=== PATIENT | female | born 1980 | race Caucasian/White ===

== ENCOUNTER 2023-01-01 15:21 | Inpatient (IN) | payer BC ==
[2023-01-01] MEDS ORDERED: HYDROmorphone 0.5 MG/0.5 ML Syringe IVPUSH ONE (15:39)
[2023-01-01] MEDS ORDERED: Lactated Ringers 1,000 ML IV ONE (15:46)
[2023-01-01] MEDS ORDERED: Ketamine 17 MG in Sodium Chloride 0.9% 19.83 ML IV SCH (16:00)
[2023-01-01] MEDS ORDERED: Ropivacaine 40 ML, dexAMETHasone 8 MG, EPINEPHrine 0.4 MG, Sodium Chloride 0.9% 37.6 ML NERVRT SCH ×4 (16:00)
[2023-01-01] MEDS ORDERED: Ketamine 500 MG/5 ML MDV IV SCH (16:00)
[2023-01-01] MEDS ORDERED: Ondansetron 4 MG/2 ML SDV ONE (16:08)
[2023-01-01] MEDS ORDERED: Dexamethasone 4 MG/ML SDV ONE (16:08)
[2023-01-01] MEDS ORDERED: fentaNYL 250 MCG/5 ML SDV ONE ×2 (16:08→16:40)
[2023-01-01] MEDS ORDERED: Rocuronium 50 MG/5 ML Vial ONE ×2 (16:08→16:59)
[2023-01-01] MEDS ORDERED: Neostigmine Methylsulfate 1 MG/ML 5 ML Syringe ONE (16:08)
[2023-01-01] MEDS ORDERED: Succinylcholine 200 MG/10 ML MDV ONE (16:08)
[2023-01-01] MEDS ORDERED: Glycopyrrolate 0.2 MG/ML 5 ML MDV ONE (16:08)
[2023-01-01] MEDS ORDERED: Propofol 200 MG/20 ML SDV ONE (16:08)
[2023-01-01] MEDS ORDERED: Meropenem 500 MG SDV ONE ×3 (16:14→16:42)
[2023-01-01] MEDS ORDERED: LINEZOLID ONE (16:42)
[2023-01-01] MEDS ORDERED: Labetalol 20 MG/4 ML Syringe ONE (17:00)
[2023-01-01] MEDS ORDERED: Lactated Ringers 1,000 ML ONE (17:02)
[2023-01-01] MEDS ORDERED: Linezolid 600 MG/300 ML Premix Bag IRR ONE (17:23)
[2023-01-01] MEDS ORDERED: fentaNYL 50 MCG/ML SDV IVPUSH ONE (18:24)
[2023-01-01] MEDS ORDERED: Lidocaine 1% 2 ML ONE (18:35)
[2023-01-01] MEDS ORDERED: HYDROmorphone/Normal Saline 6 MG/30 ML PCA Vial IV PRN (19:33)
[2023-01-01] MEDS ORDERED: Dextrose 5%-Lactated Ringers 1,000 ML IV SCH (19:45)
[2023-01-01] MEDS ORDERED: Metoclopramide 10 MG/2 ML SDV IVPUSH PRN (20:00)
[2023-01-01] MEDS ORDERED: Ondansetron 4 MG/2 ML SDV IVPUSH PRN (20:00)
[2023-01-01] MEDS ORDERED: Labetalol 20 MG/4 ML Syringe IVPUSH PRN (20:00)
[2023-01-01] MEDS ORDERED: Naloxone 0.4 MG/ML SDV IV PRN (20:00)
[2023-01-01] MEDS ORDERED: Acetaminophen 500 MG Tab PO PRN (20:00)
[2023-01-01] MEDS: Linezolid 600 MG in Premix Bag 1 BAG IV SCH (20:07)
[2023-01-01] MEDS: Pantoprazole 40 MG Vial IVPUSH SCH (20:07)
[2023-01-01] MEDS: Acetaminophen 500 MG Tab PO SCH ×4 (20:07→21:24)
[2023-01-01] MEDS: hydrOXYzine HCL 100 MG/2 ML SDV IM PRN (20:17)
[2023-01-01] MEDS: Cyclobenzaprine 10 MG Tab PO PRN (21:22)
[2023-01-01] MEDS: HYDROmorphone/Normal Saline 6 MG/30 ML PCA Vial IV PRN (22:12)
[2023-01-01] MEDS: Calcium Carbonate 500 MG Tab.Chew PO PRN (22:17)
[2023-01-01] MEDS: Heparin Sodium 5,000 Units/ML Vial SUBCUT SCH (22:25)
[2023-01-01] MEDS: Meropenem 500 MG in Sodium Chloride 0.9% 50 ML IV SCH (22:47)
[2023-01-02] MEDS: HYDROmorphone/Normal Saline 6 MG/30 ML PCA Vial IV PRN ×4 (01:34→23:40)
[2023-01-02] MEDS: diphenhydrAMINE 50 MG/ML SDV IVPUSH PRN ×2 (03:42→15:39)
[2023-01-02] MEDS: Acetaminophen 500 MG Tab PO SCH (03:44)
[2023-01-02] MEDS: Meropenem 500 MG in Sodium Chloride 0.9% 50 ML IV SCH ×5 (03:51→23:25)
[2023-01-02] MEDS: hydrOXYzine HCL 100 MG/2 ML SDV IM PRN ×3 (03:53→23:43)
[2023-01-02] MEDS ORDERED: Iopamidol 612 MG/ML 30 ML SDV PO ONE (04:43)
[2023-01-02 04:56] LABS: BASOPHILS PERCENT AUTO 0.1 % (0.1-1.3); HEMATOCRIT 34.6 % (34.3-46.0); HEMOGLOBIN 11.5 g/dL (11.2-15.5); IMMATURE GRAN ABSOLUTE AUTO 0.05 K/uL (0.00-0.23); IMMATURE GRAN PERCENT AUTO 0.3 % (0.0-0.7); LYMPHOCYTES ABSOLUTE AUTO 0.47 K/uL (0.8-3.3); LYMPHOCYTES PERCENT AUTO 3.3 % (11.4-47.7); MEAN CORPUSCULAR HEMOGLOBIN 27.7 pg (31.6-35.5); MEAN CORPUSCULAR HGB CONC 33.2 g/dL (31.6-35.5); MEAN CORPUSCULAR VOLUME 83.4 fL (81.4-99.0); NEUTROPHILS ABSOLUTE AUTO 12.85 K/uL (1.0-7.6); NEUTROPHILS PERCENT AUTO 89.3 % (40.0-78.1); PLATELET COUNT,PLT 353 K/uL (130-375); RED BLOOD CELL COUNT 4.15 M/uL (3.77-5.24); WHITE BLOOD CELL COUNT,WBC 14.4 K/uL (3.2-11.0)
[2023-01-02 05:01] LABS: BASOPHILS ABSOLUTE AUTO 0.01 K/uL (0.00-0.10)
[2023-01-02 05:30] LABS: A/G RATIO 0.8 (1.2-2.2); ALANINE AMINOTRANSFERASE,ALT 40 U/L (12-78); ALBUMIN 2.7 g/dL (3.4-5.0); ALKALINE PHOSPHATASE 88 U/L (46-116); ASPARTATE AMNIOTRANSFERASE,AST 36 U/L (15-37); BILIRUBIN TOTAL 0.3 mg/dL (0.2-1.0); BLOOD UREA NITROGEN,BUN 7 mg/dL (7-18); CALCIUM 8.8 mg/dL (8.5-10.1); CARBON DIOXIDE,CO2 25 mmol/L (21-32); CHLORIDE,CL 103 mmol/L (100-108); CREATININE 0.8 mg/dL (0.6-1.0); EST CRCL DRUG DOSING (CG) 83.27 mL/min; ESTIMATED GFR 95 mL/min (>60); FERRITIN 20 ng/ml (8-388); GLUCOSE RANDOM 203 mg/dL (74-106); MAGNESIUM 1.6 mg/dL (1.8-2.4); POTASSIUM,K 4.2 mmol/L (3.6-5.2); PRO B-TYPE NATRIUR PEPT,BNPPRO 255 pg/mL (5-125); PROTEIN TOTAL,TP 6.1 g/dL (6.4-8.2); SODIUM,NA 136 mmol/L (140-148)
[2023-01-02 06:27] LABS: ANION GAP 12.2 mmol/L (5.0-14.0)
[2023-01-02] MEDS: Heparin Sodium 5,000 Units/ML Vial SUBCUT SCH ×2 (09:23→20:10)
[2023-01-02] MEDS: Linezolid 600 MG in Premix Bag 1 BAG IV SCH ×2 (09:23→20:10)
[2023-01-02] MEDS: Magnesium Sulfate/Water 2 GM in Premix Bag 1 BAG IV SCH ×3 (09:38→20:36)
[2023-01-02] MEDS: Dextrose 5%-Lactated Ringers 1,000 ML IV SCH (11:31)
[2023-01-02] MEDS: Acetaminophen 1,000 MG in Premix Bag 1 BAG IV SCH ×3 (12:32→23:28)
[2023-01-02] MEDS: Cyclobenzaprine 10 MG Tab PO PRN ×2 (12:32→20:39)
[2023-01-02] MEDS: Sodium Ferric Gluconate Cmplex 250 MG in Sodium Chloride 0.9% 100 ML IV SCH (13:55)
[2023-01-02] MEDS: Calcium Carbonate 500 MG Tab.Chew PO PRN (15:39)
[2023-01-02] MEDS: Ketorolac 10 MG Tab PO PRN (15:54)
[2023-01-02] MEDS ORDERED: MVI, Adult with Vitamin K 10 ML, Thiamine 200 MG, Zinc/Copper/Manganese/Selenium 1 ML i... IV SCH ×8 (16:00)
[2023-01-02] MEDS: Pantoprazole 40 MG Vial IVPUSH SCH (20:10)
[2023-01-03] MEDS: Ketorolac 10 MG Tab PO PRN (02:34)
[2023-01-03] MEDS: Dextrose 5%-Lactated Ringers 1,000 ML IV SCH (02:42)
[2023-01-03] MEDS: Magnesium Sulfate/Water 2 GM in Premix Bag 1 BAG IV SCH ×4 (02:44→18:51)
[2023-01-03] MEDS: Cyclobenzaprine 10 MG Tab PO PRN ×2 (04:38→10:38)
[2023-01-03] MEDS: diphenhydrAMINE 50 MG/ML SDV IVPUSH PRN ×2 (04:39→21:45)
[2023-01-03] MEDS: Meropenem 500 MG in Sodium Chloride 0.9% 50 ML IV SCH ×5 (04:42→23:58)
[2023-01-03 05:05] LABS: BASOPHILS ABSOLUTE AUTO 0.04 K/uL (0.00-0.10); BASOPHILS PERCENT AUTO 0.4 % (0.1-1.3); EOSINOPHILS ABSOLUTE AUTO 0.13 K/uL (0.00-0.40); EOSINOPHILS PERCENT AUTO 1.3 % (0.0-5.4); HEMATOCRIT 30.6 % (34.3-46.0); HEMOGLOBIN 9.6 g/dL (11.2-15.5); IMMATURE GRAN ABSOLUTE AUTO 0.05 K/uL (0.00-0.23); IMMATURE GRAN PERCENT AUTO 0.5 % (0.0-0.7); LYMPHOCYTES ABSOLUTE AUTO 1.65 K/uL (0.8-3.3); LYMPHOCYTES PERCENT AUTO 16.1 % (11.4-47.7); MEAN CORPUSCULAR HEMOGLOBIN 27.2 pg (31.6-35.5); MEAN CORPUSCULAR HGB CONC 31.4 g/dL (31.6-35.5); MEAN CORPUSCULAR VOLUME 86.7 fL (81.4-99.0); MONOCYTES PERCENT AUTO 6.8 % (3.3-12.6); NEUTROPHILS ABSOLUTE AUTO 7.65 K/uL (1.0-7.6); NEUTROPHILS PERCENT AUTO 74.9 % (40.0-78.1); PLATELET COUNT,PLT 292 K/uL (130-375); RED BLOOD CELL COUNT 3.53 M/uL (3.77-5.24); WHITE BLOOD CELL COUNT,WBC 10.2 K/uL (3.2-11.0)
[2023-01-03 05:26] LABS: A/G RATIO 0.7 (1.2-2.2); ALANINE AMINOTRANSFERASE,ALT 30 U/L (12-78); ALBUMIN 2.4 g/dL (3.4-5.0); ALKALINE PHOSPHATASE 95 U/L (46-116); ASPARTATE AMNIOTRANSFERASE,AST 45 U/L (15-37); BILIRUBIN TOTAL 0.2 mg/dL (0.2-1.0); BLOOD UREA NITROGEN,BUN 6 mg/dL (7-18); CALCIUM 8.7 mg/dL (8.5-10.1); CARBON DIOXIDE,CO2 30 mmol/L (21-32); CHLORIDE,CL 104 mmol/L (100-108); CREATININE 0.8 mg/dL (0.6-1.0); EST CRCL DRUG DOSING (CG) 83.27 mL/min; ESTIMATED GFR 95 mL/min (>60); GLUCOSE RANDOM 107 mg/dL (74-106); PHOSPHORUS 3.7 mg/dL (2.5-4.9); POTASSIUM,K 3.7 mmol/L (3.6-5.2); PROTEIN TOTAL,TP 5.9 g/dL (6.4-8.2); SODIUM,NA 139 mmol/L (140-148)
[2023-01-03 05:31] LABS: ANION GAP 8.7 mmol/L (5.0-14.0)
[2023-01-03] MEDS: Acetaminophen 1,000 MG in Premix Bag 1 BAG IV SCH (05:53)
[2023-01-03] MEDS: HYDROmorphone/Normal Saline 6 MG/30 ML PCA Vial IV PRN ×2 (06:07→19:40)
[2023-01-03] MEDS ORDERED: Meropenem 500 MG SDV ONE (06:39)
[2023-01-03] MEDS ORDERED: Bupivacaine 0.5% 50 ML MDV ONE (06:39)
[2023-01-03] MEDS ORDERED: Lidocaine 1% with EPINEPHrine 1:100,000 50 ML MDV ONE (06:39)
[2023-01-03] MEDS ORDERED: Ropivacaine 40 ML, dexAMETHasone 8 MG, EPINEPHrine 0.4 MG, Sodium Chloride 0.9% 37.6 ML NERVRT SCH ×4 (07:15)
[2023-01-03] MEDS ORDERED: Midazolam 1 MG/ML 2 ML SDV ONE (07:16)
[2023-01-03] MEDS ORDERED: fentaNYL 100 MCG/2 ML SDV ONE (07:16)
[2023-01-03] MEDS ORDERED: Propofol 200 MG/20 ML SDV ONE ×2 (07:16→07:50)
[2023-01-03] MEDS ORDERED: Lactated Ringers 1,000 ML ONE (08:05)
[2023-01-03] MEDS ORDERED: Cyanocobalamin (Vitamin B12) 1,000 MCG/ML SDV IM ONE (09:00)
[2023-01-03] MEDS ORDERED: Dextrose 5%-Lactated Ringers 1,000 ML IV SCH (09:30)
[2023-01-03] MEDS: Heparin Sodium 5,000 Units/ML Vial SUBCUT SCH ×2 (10:21→21:27)
[2023-01-03] MEDS: Linezolid 600 MG in Premix Bag 1 BAG IV SCH ×2 (10:31→21:27)
[2023-01-03] MEDS ORDERED: Sodium Ferric Gluconate Cmplex 250 MG in Sodium Chloride 0.9% 100 ML IV SCH (13:30)
[2023-01-03] MEDS: Acetaminophen 500 MG Tab PO SCH ×3 (14:21→18:54)
[2023-01-03] MEDS: Sodium Ferric Gluconate Cmplex 250 MG in Sodium Chloride 0.9% 100 ML IV SCH (14:25)
[2023-01-03] MEDS: hydrOXYzine HCL 100 MG/2 ML SDV IM PRN (18:44)
[2023-01-03] MEDS: Pantoprazole 40 MG Vial IVPUSH SCH (21:27)
[2023-01-04] MEDS: Acetaminophen 500 MG Tab PO SCH ×2 (00:04→06:06)
[2023-01-04] MEDS: Magnesium Sulfate/Water 2 GM in Premix Bag 1 BAG IV SCH ×2 (00:06→05:22)
[2023-01-04 04:27] LABS: BASOPHILS PERCENT AUTO 0.1 % (0.1-1.3); EOSINOPHILS PERCENT AUTO 0.1 % (0.0-5.4); HEMATOCRIT 30.7 % (34.3-46.0); HEMOGLOBIN 9.9 g/dL (11.2-15.5); IMMATURE GRAN ABSOLUTE AUTO 0.06 K/uL (0.00-0.23); IMMATURE GRAN PERCENT AUTO 0.6 % (0.0-0.7); LYMPHOCYTES PERCENT AUTO 10.3 % (11.4-47.7); MEAN CORPUSCULAR HEMOGLOBIN 27.5 pg (31.6-35.5); MEAN CORPUSCULAR HGB CONC 32.2 g/dL (31.6-35.5); MEAN CORPUSCULAR VOLUME 85.3 fL (81.4-99.0); MONOCYTES ABSOLUTE AUTO 0.53 K/uL (0.20-0.90); NEUTROPHILS ABSOLUTE AUTO 8.96 K/uL (1.0-7.6); NEUTROPHILS PERCENT AUTO 83.9 % (40.0-78.1); PLATELET COUNT,PLT 333 K/uL (130-375); WHITE BLOOD CELL COUNT,WBC 10.7 K/uL (3.2-11.0)
[2023-01-04 04:29] LABS: BASOPHILS ABSOLUTE AUTO 0.01 K/uL (0.00-0.10); EOSINOPHILS ABSOLUTE AUTO 0.01 K/uL (0.00-0.40)
[2023-01-04] MEDS: Meropenem 500 MG in Sodium Chloride 0.9% 50 ML IV SCH (05:19)
[2023-01-04] MEDS ORDERED: HYDROmorphone 2 MG Tab PO PRN (07:42)
[2023-01-04] MEDS: Linezolid 600 MG in Premix Bag 1 BAG IV SCH (08:25)
[2023-01-04] MEDS: Heparin Sodium 5,000 Units/ML Vial SUBCUT SCH (08:30)
[2023-01-04] MEDS ORDERED: Bisacodyl 5 MG Tab PO SCH (09:00)
[2023-01-04] MEDS ORDERED: Ciprofloxacin 500 MG Tab PO SCH (09:00)
[2023-01-04] MEDS: Magnesium Hydroxide 400 MG/5 ML Susp 30 ML Cup PO SCH ×2 (09:19→09:41)
== END 2023-01-04 09:50 | disposition home or self-care (01) | DRG 220 ==
LOC: JP.MS 15:21 → JP.ICU 19:15 → JP.MS 19:17 → JP.ICU 19:17 → JP.MS 01-03 08:53
PROVIDERS: ADMIT Surgery; ATTEND Surgery
PROC: 0DT60ZZ Resection of Stomach, Open Approach (ICD-10-PCS; principal; 2023-01-01)
PROC: 3E0M05Z Introduction of Adhesion Barrier into Peritoneal Cavity, Open Approach (ICD-10-PCS; 2023-01-01)
PROC: 0D990ZZ Drainage of Duodenum, Open Approach (ICD-10-PCS; 2023-01-01)
PROC: 0D160Z9 Bypass Stomach to Duodenum, Open Approach (ICD-10-PCS; 2023-01-01)
PROC: 0WQF0ZZ Repair Abdominal Wall, Open Approach (ICD-10-PCS; 2023-01-03)
DX: K95.89 Other complications of other bariatric procedure (principal); K26.5 Chronic or unspecified duodenal ulcer with perforation; K21.9 Gastro-esophageal reflux disease without esophagitis; E66.01 Morbid (severe) obesity due to excess calories; K63.0 Abscess of intestine; F41.9 Anxiety disorder, unspecified; Z20.822 Contact with and (suspected) exposure to COVID-19; Z88.6 Allergy status to analgesic agent; Z90.49 Acquired absence of other specified parts of digestive tract; Z98.84 Bariatric surgery status; Z98.890 Other specified postprocedural states; Z87.891 Personal history of nicotine dependence; Z79.899 Other long term (current) drug therapy; Z68.29 Body mass index [BMI] 29.0-29.9, adult
CPT/HCPCS: 36415; 74240; 74240-26; 80053; 82728; 83735; 83880; 84100; 85025; 87070; 87075; 87205; A9270-GY; C9113; J0131; J0171; J0330; J1100; J1170; J1200; J1644; J2020; J2185; J2250; J2405; J2704; J2710; J2795; J2916; J3010; J3410; J3411; J3420; J3475; J3490; J7120; J7121; Q9967

== ENCOUNTER 2023-01-05 11:19 | Inpatient (IN) | payer BC ==
[2023-01-05] MEDS ORDERED: Naloxone 0.4 MG/ML SDV IVPUSH PRN ×2 (11:46→15:26)
[2023-01-05] MEDS ORDERED: HYDROmorphone 0.5 MG/0.5 ML Syringe IVPUSH ONE (11:46)
[2023-01-05] MEDS ORDERED: Sodium Chloride 0.9% 10 ML Syringe FLUSH PRN ×2 (11:46→12:19)
[2023-01-05] MEDS ORDERED: Sodium Chloride 0.9% 1,000 ML IV ONE (11:47)
[2023-01-05] MEDS ORDERED: Pantoprazole 40 MG Vial IVPUSH ONE (12:03)
[2023-01-05 12:09] LABS: BASOPHILS ABSOLUTE AUTO 0.05 K/uL (0.00-0.10); BASOPHILS PERCENT AUTO 0.5 % (0.1-1.3); EOSINOPHILS ABSOLUTE AUTO 0.23 K/uL (0.00-0.40); EOSINOPHILS PERCENT AUTO 2.4 % (0.0-5.4); HEMATOCRIT 34.4 % (34.3-46.0); HEMOGLOBIN 11.2 g/dL (11.2-15.5); IMMATURE GRAN ABSOLUTE AUTO 0.12 K/uL (0.00-0.23); IMMATURE GRAN PERCENT AUTO 1.3 % (0.0-0.7); LYMPHOCYTES PERCENT AUTO 17.7 % (11.4-47.7); MEAN CORPUSCULAR HEMOGLOBIN 27.4 pg (31.6-35.5); MEAN CORPUSCULAR HGB CONC 32.6 g/dL (31.6-35.5); MEAN CORPUSCULAR VOLUME 84.1 fL (81.4-99.0); MONOCYTES ABSOLUTE AUTO 0.83 K/uL (0.20-0.90); MONOCYTES PERCENT AUTO 8.7 % (3.3-12.6); NEUTROPHILS ABSOLUTE AUTO 6.66 K/uL (1.0-7.6); NEUTROPHILS PERCENT AUTO 69.4 % (40.0-78.1); PLATELET COUNT,PLT 404 K/uL (130-375); RED BLOOD CELL COUNT 4.09 M/uL (3.77-5.24); WHITE BLOOD CELL COUNT,WBC 9.6 K/uL (3.2-11.0)
[2023-01-05] MEDS ORDERED: Iopamidol 612 MG/ML 100 ML Bottle IV PRN (12:19)
[2023-01-05] MEDS ORDERED: Sodium Chloride 0.9% 50 ML IV ONE (12:19)
[2023-01-05 12:31] LABS: A/G RATIO 0.7 (1.2-2.2); ALANINE AMINOTRANSFERASE,ALT 29 U/L (12-78); ALBUMIN 2.8 g/dL (3.4-5.0); ALKALINE PHOSPHATASE 122 U/L (46-116); ASPARTATE AMNIOTRANSFERASE,AST 35 U/L (15-37); BILIRUBIN TOTAL 0.2 mg/dL (0.2-1.0); BLOOD UREA NITROGEN,BUN 12 mg/dL (7-18); C-REACTIVE PROTEIN 7.77 mg/dL (0.0-0.3); CALCIUM 8.8 mg/dL (8.5-10.1); CARBON DIOXIDE,CO2 26 mmol/L (21-32); CHLORIDE,CL 102 mmol/L (100-108); CREATININE 0.6 mg/dL (0.6-1.0); EST CRCL DRUG DOSING (CG) 111.03 mL/min; ESTIMATED GFR 116 mL/min (>60); GLUCOSE RANDOM 98 mg/dL (74-106); POTASSIUM,K 3.7 mmol/L (3.6-5.2); SODIUM,NA 139 mmol/L (140-148)
[2023-01-05 12:32] LABS: ANION GAP 14.7 mmol/L (5.0-14.0)
[2023-01-05] MEDS: HYDROmorphone 0.5 MG/0.5 ML Syringe IVPUSH PRN ×2 (12:38→14:23)
[2023-01-05] MEDS ORDERED: Meropenem 1 GM in Sodium Chloride 0.9% 100 ML IV SCH (14:00)
[2023-01-05] MEDS ORDERED: diphenhydrAMINE 25 MG Cap PO PRN (15:26)
[2023-01-05] MEDS ORDERED: Magnesium Hydroxide 400 MG/5 ML Susp 30 ML Cup PO PRN (15:26)
[2023-01-05] MEDS ORDERED: Acetaminophen 325 MG Tab PO PRN (15:26)
[2023-01-05] MEDS ORDERED: diphenhydrAMINE 50 MG/ML SDV IVPUSH PRN (15:26)
[2023-01-05] MEDS ORDERED: Ondansetron 4 MG/2 ML SDV IV PRN (15:26)
[2023-01-05] MEDS ORDERED: Sennosides/Docusate Sodium 50-8.6 MG Tab PO PRN (15:26)
[2023-01-05] MEDS ORDERED: Ondansetron 4 MG Tab.DIS PO PRN (15:26)
[2023-01-05] MEDS: HYDROmorphone/Normal Saline 6 MG/30 ML PCA Vial IV PRN (15:54)
[2023-01-05] MEDS: Linezolid 600 MG in Premix Bag 1 BAG IV SCH (16:02)
[2023-01-05] MEDS: Dextrose 5%-Lactated Ringers 1,000 ML IV SCH (19:37)
[2023-01-05] MEDS: Meropenem 1 GM in Sodium Chloride 0.9% 100 ML IV SCH (21:20)
[2023-01-06] MEDS: HYDROmorphone/Normal Saline 6 MG/30 ML PCA Vial IV PRN ×2 (01:19→15:39)
[2023-01-06] MEDS: Linezolid 600 MG in Premix Bag 1 BAG IV SCH ×2 (04:20→15:59)
[2023-01-06 04:48] LABS: HEMATOCRIT 33.2 % (34.3-46.0); HEMOGLOBIN 10.6 g/dL (11.2-15.5); MEAN CORPUSCULAR HEMOGLOBIN 27.4 pg (31.6-35.5); MEAN CORPUSCULAR HGB CONC 31.9 g/dL (31.6-35.5); MEAN CORPUSCULAR VOLUME 85.8 fL (81.4-99.0); RED BLOOD CELL COUNT 3.87 M/uL (3.77-5.24); WHITE BLOOD CELL COUNT,WBC 7.4 K/uL (3.2-11.0)
[2023-01-06 05:02] LABS: A/G RATIO 0.6 (1.2-2.2); ALANINE AMINOTRANSFERASE,ALT 24 U/L (12-78); ALBUMIN 2.4 g/dL (3.4-5.0); ALKALINE PHOSPHATASE 107 U/L (46-116); ASPARTATE AMNIOTRANSFERASE,AST 24 U/L (15-37); BILIRUBIN TOTAL 0.2 mg/dL (0.2-1.0); BLOOD UREA NITROGEN,BUN 8 mg/dL (7-18); CALCIUM 8.6 mg/dL (8.5-10.1); CARBON DIOXIDE,CO2 29 mmol/L (21-32); CHLORIDE,CL 102 mmol/L (100-108); CREATININE 0.7 mg/dL (0.6-1.0); EST CRCL DRUG DOSING (CG) 95.17 mL/min; ESTIMATED GFR 111 mL/min (>60); GLUCOSE RANDOM 97 mg/dL (74-106); POTASSIUM,K 3.1 mmol/L (3.6-5.2); PROTEIN TOTAL,TP 6.2 g/dL (6.4-8.2); SODIUM,NA 138 mmol/L (140-148)
[2023-01-06 05:19] LABS: ANION GAP 10.1 mmol/L (5.0-14.0)
[2023-01-06] MEDS: Meropenem 1 GM in Sodium Chloride 0.9% 100 ML IV SCH ×3 (06:10→22:04)
[2023-01-06] MEDS: Dextrose 5%-Lactated Ringers 1,000 ML IV SCH ×2 (07:46→22:00)
[2023-01-06] MEDS: Pantoprazole 40 MG Vial IV SCH (08:07)
[2023-01-06] MEDS ORDERED: fentaNYL 50 MCG/ML SDV ONE (10:49)
[2023-01-06] MEDS ORDERED: Midazolam 1 MG/ML 2 ML SDV ONE (10:49)
[2023-01-06] MEDS ORDERED: Propofol 200 MG/20 ML SDV ONE (10:49)
[2023-01-06] MEDS ORDERED: Fluconazole/Normal Saline 400 MG in Premix Bag 1 BAG IV ONE (12:00)
[2023-01-06] MEDS: Acetaminophen 1,000 MG in Premix Bag 1 BAG IV SCH ×2 (13:59→17:34)
[2023-01-06] MEDS ORDERED: Docusate Sodium 100 MG Cap PO ONE (14:00)
[2023-01-06] MEDS ORDERED: Bisacodyl 5 MG Tab PO ONE (14:00)
[2023-01-06] MEDS: Nystatin Susp 100,000 Unit/ML 5 ML UD Cup PO SCH ×2 (15:58→22:03)
[2023-01-06] MEDS: Potassium Chloride 10 MEQ in Premix Bag 1 BAG IV SCH ×2 (17:50→20:09)
[2023-01-06] MEDS ORDERED: Docusate Sodium 100 MG Cap PO SCH (21:00)
[2023-01-06] MEDS ORDERED: Bisacodyl 5 MG Tab PO SCH (21:00)
[2023-01-07] MEDS: Acetaminophen 1,000 MG in Premix Bag 1 BAG IV SCH ×3 (00:21→13:40)
[2023-01-07] MEDS: Linezolid 600 MG in Premix Bag 1 BAG IV SCH ×2 (04:38→15:59)
[2023-01-07 04:57] LABS: BASOPHILS ABSOLUTE AUTO 0.05 K/uL (0.00-0.10); BASOPHILS PERCENT AUTO 0.7 % (0.1-1.3); EOSINOPHILS ABSOLUTE AUTO 0.45 K/uL (0.00-0.40); EOSINOPHILS PERCENT AUTO 5.9 % (0.0-5.4); HEMATOCRIT 32.7 % (34.3-46.0); HEMOGLOBIN 10.6 g/dL (11.2-15.5); IMMATURE GRAN ABSOLUTE AUTO 0.19 K/uL (0.00-0.23); IMMATURE GRAN PERCENT AUTO 2.5 % (0.0-0.7); LYMPHOCYTES ABSOLUTE AUTO 1.26 K/uL (0.8-3.3); LYMPHOCYTES PERCENT AUTO 16.6 % (11.4-47.7); MEAN CORPUSCULAR HEMOGLOBIN 27.7 pg (31.6-35.5); MEAN CORPUSCULAR HGB CONC 32.4 g/dL (31.6-35.5); MEAN CORPUSCULAR VOLUME 85.4 fL (81.4-99.0); MONOCYTES ABSOLUTE AUTO 0.97 K/uL (0.20-0.90); MONOCYTES PERCENT AUTO 12.7 % (3.3-12.6); NEUTROPHILS ABSOLUTE AUTO 4.69 K/uL (1.0-7.6); NEUTROPHILS PERCENT AUTO 61.6 % (40.0-78.1); PLATELET COUNT,PLT 316 K/uL (130-375); RED BLOOD CELL COUNT 3.83 M/uL (3.77-5.24); WHITE BLOOD CELL COUNT,WBC 7.6 K/uL (3.2-11.0)
[2023-01-07 05:23] LABS: A/G RATIO 0.6 (1.2-2.2); ALANINE AMINOTRANSFERASE,ALT 21 U/L (12-78); ALBUMIN 2.2 g/dL (3.4-5.0); ALKALINE PHOSPHATASE 101 U/L (46-116); ASPARTATE AMNIOTRANSFERASE,AST 17 U/L (15-37); BILIRUBIN TOTAL 0.2 mg/dL (0.2-1.0); BLOOD UREA NITROGEN,BUN 5 mg/dL (7-18); CALCIUM 8.4 mg/dL (8.5-10.1); CARBON DIOXIDE,CO2 28 mmol/L (21-32); CHLORIDE,CL 104 mmol/L (100-108); CREATININE 0.6 mg/dL (0.6-1.0); EST CRCL DRUG DOSING (CG) 111.03 mL/min; ESTIMATED GFR 116 mL/min (>60); GLUCOSE RANDOM 99 mg/dL (74-106); MAGNESIUM 1.8 mg/dL (1.8-2.4); PHOSPHORUS 3.4 mg/dL (2.5-4.9); POTASSIUM,K 3.3 mmol/L (3.6-5.2); PROTEIN TOTAL,TP 5.8 g/dL (6.4-8.2); SODIUM,NA 139 mmol/L (140-148)
[2023-01-07 05:30] LABS: ANION GAP 10.3 mmol/L (5.0-14.0)
[2023-01-07] MEDS: Nystatin Susp 100,000 Unit/ML 5 ML UD Cup PO SCH ×4 (06:14→21:10)
[2023-01-07] MEDS: Meropenem 1 GM in Sodium Chloride 0.9% 100 ML IV SCH ×2 (06:17→13:42)
[2023-01-07] MEDS: HYDROmorphone/Normal Saline 6 MG/30 ML PCA Vial IV PRN ×2 (06:27→16:15)
[2023-01-07] MEDS ORDERED: Dextrose 5%-Lactated Ringers 1,000 ML IV SCH (07:45)
[2023-01-07] MEDS ORDERED: Potassium Chloride 10 MEQ in Premix Bag 1 BAG IV SCH (08:30)
[2023-01-07] MEDS: Potassium Chloride 10 MEQ in Premix Bag 1 BAG IV SCH ×6 (08:31→18:51)
[2023-01-07] MEDS: Pantoprazole 40 MG Vial IV SCH (08:44)
[2023-01-07] MEDS ORDERED: Potassium Chloride 20 MEQ in Premix Bag 1 BAG IV SCH (09:00)
[2023-01-07] MEDS ORDERED: MVI, Adult with Vitamin K 10 ML, Thiamine 200 MG, Zinc/Copper/Manganese/Selenium 1 ML i... IV ONE ×4 (16:00)
[2023-01-07] MEDS: Acetaminophen 500 MG Tab PO SCH (21:09)
[2023-01-07] MEDS: oxyCODONE 5 MG Tab PO PRN (21:10)
[2023-01-08] MEDS: oxyCODONE 5 MG Tab PO PRN ×2 (01:19→07:33)
[2023-01-08] MEDS: Nystatin Susp 100,000 Unit/ML 5 ML UD Cup PO SCH ×2 (05:03→07:37)
[2023-01-08] MEDS: Acetaminophen 500 MG Tab PO SCH (05:03)
== END 2023-01-08 08:20 | disposition home or self-care (01) | DRG 114 ==
LOC: JP.ED 11:19 → JP.MS 14:03
PROVIDERS: ADMIT Internal Medicine; ATTEND Internal Medicine
PROC: 0DJ08ZZ Inspection of Upper Intestinal Tract, Via Natural or Artificial Opening Endoscopic (ICD-10-PCS; principal; 2023-01-06)
DX: B37.0 Candidal stomatitis (principal); B37.81 Candidal esophagitis; K59.00 Constipation, unspecified; M79.7 Fibromyalgia; F43.10 Post-traumatic stress disorder, unspecified; F41.1 Generalized anxiety disorder; Z20.822 Contact with and (suspected) exposure to COVID-19; Z90.49 Acquired absence of other specified parts of digestive tract; Z98.84 Bariatric surgery status; Z88.5 Allergy status to narcotic agent
CPT/HCPCS: 36415; 74177; 80053; 83690; 83735; 84100; 85025; 85027; 86140; 96361; 96374; 96375; 99222; 99285-25; A9270-GY; C9113; J0131; J1170; J1450; J2020; J2185; J2250; J2704; J3010; J3411; J3480; J3490; J7030; J7120; J7121; U0002

== ENCOUNTER 2023-06-26 11:34 | Emergency (ER) | payer BC ==
[2023-06-26 12:38] LABS: BASOPHILS ABSOLUTE AUTO 0.05 K/uL (0.00-0.10); BASOPHILS PERCENT AUTO 0.8 % (0.1-1.3); EOSINOPHILS ABSOLUTE AUTO 0.24 K/uL (0.00-0.40); EOSINOPHILS PERCENT AUTO 3.7 % (0.0-5.4); HEMATOCRIT 40.2 % (34.3-46.0); HEMOGLOBIN 13.4 g/dL (11.2-15.5); IMMATURE GRAN PERCENT AUTO 0.3 % (0.0-0.7); LYMPHOCYTES ABSOLUTE AUTO 2.36 K/uL (0.8-3.3); MEAN CORPUSCULAR HEMOGLOBIN 28.3 pg (31.6-35.5); MEAN CORPUSCULAR HGB CONC 33.3 g/dL (31.6-35.5); MONOCYTES ABSOLUTE AUTO 0.65 K/uL (0.20-0.90); MONOCYTES PERCENT AUTO 9.9 % (3.3-12.6); NEUTROPHILS ABSOLUTE AUTO 3.23 K/uL (1.0-7.6); NEUTROPHILS PERCENT AUTO 49.3 % (40.0-78.1); PLATELET COUNT,PLT 297 K/uL (130-375); RED BLOOD CELL COUNT 4.73 M/uL (3.77-5.24); WHITE BLOOD CELL COUNT,WBC 6.6 K/uL (3.2-11.0)
[2023-06-26 12:39] LABS: IMMATURE GRAN ABSOLUTE AUTO 0.02 K/uL (0.00-0.23)
[2023-06-26 12:58] LABS: ALANINE AMINOTRANSFERASE,ALT 35 U/L (12-78); ALBUMIN 3.6 g/dL (3.4-5.0); ALKALINE PHOSPHATASE 121 U/L (46-116); ASPARTATE AMNIOTRANSFERASE,AST 23 U/L (15-37); BILIRUBIN TOTAL 0.2 mg/dL (0.2-1.0); BLOOD UREA NITROGEN,BUN 12 mg/dL (7-18); CALCIUM 8.8 mg/dL (8.5-10.1); CARBON DIOXIDE,CO2 29 mmol/L (21-32); CHLORIDE,CL 101 mmol/L (100-108); CREATININE 0.8 mg/dL (0.6-1.0); EST CRCL DRUG DOSING (CG) 82.43 mL/min; ESTIMATED GFR 94 mL/min (>60); GLUCOSE RANDOM 97 mg/dL (74-106); POTASSIUM,K 4.1 mmol/L (3.6-5.2); PROTEIN TOTAL,TP 7.3 g/dL (6.4-8.2); SODIUM,NA 137 mmol/L (140-148)
[2023-06-26 13:01] LABS: ANION GAP 11.1 mmol/L (5.0-14.0)
== END 2023-06-26 14:18 | disposition home or self-care (01) ==
LOC: JP.ED 11:34
DX: K59.00 Constipation, unspecified (principal); Z90.49 Acquired absence of other specified parts of digestive tract; Z88.5 Allergy status to narcotic agent
CPT/HCPCS: 36415; 74176; 80053; 83690; 85025; 86140; 99284

== ENCOUNTER 2024-06-21 06:24 | Day surgery (SDC) | payer BC ==
[2024-06-21] MEDS ORDERED: Propofol 200 MG/20 ML SDV ONE (07:03)
[2024-06-21] MEDS ORDERED: fentaNYL 100 MCG/2 ML SDV ONE (07:03)
[2024-06-21] MEDS ORDERED: Midazolam 1 MG/ML 2 ML SDV ONE (07:04)
[2024-06-21] MEDS: Lactated Ringers 1,000 ML IV SCH (07:29)
== END 2024-06-21 09:00 | disposition home or self-care (01) ==
LOC: JP.SDS 06:24
PROVIDERS: ATTEND Surgery
DX: R10.13 Epigastric pain (principal); F32.A Depression, unspecified; Z88.8 Allergy status to other drugs, medicaments and biological substances
CPT/HCPCS: 43235; J2250; J2704; J3010; J7120